=== PATIENT | female | born 1940 | race Asian ===

== ENCOUNTER 2023-04-10 13:08 | Outpatient (AMB) | payer MEDICARE, SELFPAY ==
[2023-04-10 13:38] VITALS: BP 118/70; PULSE 58; O2SAT 99; BMI 21.8
--- NOTE | 2023-04-10 13:38 | MHC.PC.OV ---
Vital Signs 04/10/23 13:38 Height 4 ft 10 in Weight 104 lb 8 oz BMI 21.8 BP 118/70 Blood Pressure Location Lt brachial Position Sitting Pulse 58 Pulse Source Pulse Oximeter Pulse Oximetry (%) 99 Oxygen Delivery Method Room Air Intake Visit Reasons: Establish Care OK per ID Medication List - Last Reconciled 04/10/23 by Paola Murillo MD amlodipine 5 mg PO DAILY atenolol 25 mg PO DAILY levothyroxine 25 mcg PO DAILY Tobacco use date assessed: 04/10/23 Fall risk assessment: No Falls in past year Last assessed Fall Risk: 04/10/23 Dental Screening Dental Screen Date: 04/10/23 Did you have a dental visit in the last 12 months?: No Did you have a dental problem in the last 6 months where you did not have access to dental care?: No Was dental information given to patient?: Patient has dentist HPI Establish Care OK per ID HPI Details Patient is 82-year-old female came in today for establish care visit Patient have a history of hypertension blood pressure is well controlled she is taking amlodipine 5 mg and atenolol 25 mg She takes levothyroxine 25 mcg for hypothyroidism Patient declines to do the mammogram She says she is all done with the colonoscopy as well She offer no new complaints today Lab order placed to be done fasting medication filled Patient will be seen every 6 month lab to be done before visit. [facility] Social History Housing: House Patient Tobacco Use Status: Never used Tobacco e-Cigarette/Vaping Use: Never Used service: No Current occupational status: retired Cognitive needs: No Hearing needs: No Vision needs: Yes Questionnaire PHQ-9 Over the last 2 weeks, how often have you been bothered by any of the following problems? 1. Little interest or pleasure in doing things: not at all 2. Feeling down, depressed, or hopeless: not at all 3. Trouble falling or staying asleep, or sleeping too much: not at all 4. Feeling tired or having little energy: not at all 5. Poor appetite or overeating: not at all 6. Feeling bad about yourself - or that you are a failure or have let yourself or your family down: not at all 7. Trouble concentrating on things, such as reading the newspaper or watching television: not at all 8. Moving or speaking so slowly that other people could have noticed. Or the opposite - being so fidgety or restless that you have been moving around a lot more than usual: not at all 9. Thoughts that you would be better off or of hurting yourself in some way: not at all Total score: 0 Depression Screening Interpretation: Negative Depression Screening Done: Yes 71791 - PHQ-9 Billing: Yes Source: Developed by Drs. Elan Scott, Maura Grey, Oscar Montoya and colleagues, with an educational verna from [employer]. Thrive Questionnaire Date Thrive assessed: 04/10/23 I am a: Patient What is your living situation today?: I have a steady place to live Within the past 12 months, did the food you bought not last and you didn't have the money to get more?: Never true Within the past 12 months, did you worry whether your food would run out before you got money to buy more?: Never true Do you have trouble paying for medicines?: No Do you have trouble getting transportation to medical appointments?: No Do you have trouble paying your heating and electricity bill?: No Do you have trouble taking care of your child, family member or friend?: No Do you have trouble with day-to-day activities such as bathing, preparing meals, shopping, managing finances, etc.?: No Are you currently unemployed and looking for a job?: No Are you interested in more education?: No Please select the resources that you would like help with: None Currently or been in a relationship where the following occur: no concerns reported SINGH-7 AMB Questionnaire SINGH-7 Date SINGH - 7 assessed: 04/10/23 Feeling nervous, anxious, or on edge: 0 = Not at all Not being able to stop or control worryin = Not at all Worrying too much about different things: 0 = Not at all Trouble relaxin = Not at all Being so restless that it is hard to sit still: 0 = Not at all Becoming easily annoyed or irritable: 0 = Not at all Feeling afraid as if something awful might happen: 0 = Not at all Total SINGH-7 score (0-4 normal; 5-9 mild; 10-14 moderate; 15-21 severe): 0 Source: Developed by Drs. Elan Scott, Maura Grey, Oscar Montoya and colleagues, with an educational verna from [employer]. SINGH-7 Assessment Billing SINGH-7 Assessment Tool: SINGH-7 Assessment 17655 Review of Systems Const Denies chills, Denies fever(s) and Denies headache(s) Eyes Denies blurry vision ENT Denies headache(s), Denies nasal discharge, Denies nasal obstruction, Denies odynophagia and Denies sinus pain Card Denies chest pain at rest and Denies chest pain with activity Resp Denies cough and Denies hemoptysis GI Denies diarrhea, Denies odynophagia, Denies vomiting and Denies hematemesis Reports as per HPI Musc Denies abnormal gait Skin/Breast Reports as per HPI Neuro Denies Neuro-related abnormal movements, Denies Abnormal speech present, Denies abnormal gait, Denies headache(s) and Denies Sensory deficit (Neuro) Psych Denies mood swings and Denies paranoia Endo Reports as per HPI Dick/Lymph Reports as per HPI Aller/Immun Reports as per HPI Physical exam (Primary Care) Vital Signs: Last Vital Signs Pulse 58 04/10/23 13:38 BP 118/70 04/10/23 13:38 Pulse Ox 99 04/10/23 13:38 Oxygen Delivery Method Room Air 04/10/23 13:38 BMI result Body Mass Index 21.8 Tobacco/Smoking Status: Tobacco use Status Tobacco use date assessed 04/10/23 04/10/23 13:41 Patient Tobacco Use Status Never used Tobacco 04/10/23 13:41 e-Cigarette/Vaping Use Never Used 04/10/23 13:41 PHQ-9: PHQ-9 Score PHQ-9: Total score 0 04/10/23 14:04 Depression Screening Interpretation: Negative Thrive Assessment: Date of Thrive Assessment Date Thrive assessed 04/10/23 04/10/23 14:04 Currently or been in a relationship where the following occur: no concerns reported Const General: cooperative, comfortable and no acute distress Orientation/consciousness: patient oriented x3 HENMT Head: Yes normocephalic and Yes atraumatic Eyes General: appearance normal, both eyes and all related structures Pupils: Equal, round and reactive pupils present EOM: EOMs intact bilaterally Neck Neck: Yes supple and No lymphadenopathy Thyroid: Thyroid normal Lymphatic: no lymphadenopathy noted Chest Breast/axilla palpation: normal palpation of the breasts Resp Effort & Inspection: normal respiratory effort and able to speak in complete sentences Auscultation: clear to auscultation bilaterally Cardio Heart sounds: S1 normal heart sound present and S2 normal heart sound present GI Palpation (GI): Soft to palpation and nontender Auscultation: normal bowel sounds General: Yes no CVA tenderness Back/Spine/Pelvis Back: no CVA tenderness Skin General skin exam: elasticity normal and turgor normal Neuro General: patient oriented x3 and gait normal Cranial nerves: Yes Equal, round and reactive pupils present Speech: No Abnormal speech present Sensory Exam: No Sensory deficit (Neuro) Coordination: tandem gait normal and Romberg test negative Extrem General: Yes normal exam except as noted and No edema Assessment and Plan Assessment & Plan (1) Establishing care with new doctor, encounter for: Code(s): Z76.89 - Persons encountering health services in other specified circumstances (2) Hypertension, essential: Code(s): I10 - Essential (primary) hypertension (3) Other specified hypothyroidism: Code(s): E03.8 - Other specified hypothyroidism Plan Patient is 82-year-old female came in today for establish care visit Patient have a history of hypertension blood pressure is well controlled she is taking amlodipine 5 mg and atenolol 25 mg She takes levothyroxine 25 mcg for hypothyroidism Patient declines to do the mammogram She says she is all done with the colonoscopy as well She offer no new complaints today Lab order placed to be done fasting medication filled Patient will be seen every 6 month lab to be done before visit. Orders: Orders Complete Blood Count Auto Diff Today E03.8 - Other specified hypothyroidism, I10 - Essential (primary) hypertension, Z76.89 - Persons encountering health services in other specified circumstances Comprehensive [place]. Panel Fast Today E03.8 - Other specified hypothyroidism, I10 - Essential (primary) hypertension, Z76.89 - Persons encountering health services in other specified circumstances TSH reflex Free T4 Today E03.8 - Other specified hypothyroidism, I10 - Essential (primary) hypertension, Z76.89 - Persons encountering health services in other specified circumstances Lipid Panel Today E03.8 - Other specified hypothyroidism, I10 - Essential (primary) hypertension, Z76.89 - Persons encountering health services in other specified circumstances Complete Blood Count Auto Diff 6 Months E03.8 - Other specified hypothyroidism, I10 - Essential (primary) hypertension Comprehensive Met. Panel 6 Months E03.8 - Other specified hypothyroidism, I10 - Essential (primary) hypertension TSH reflex Free T4 6 Months E03.8 - Other specified hypothyroidism, I10 - Essential (primary) hypertension Medications: New atenolol 25 mg PO DAILY 90 tabs 1RF levothyroxine 25 mcg PO DAILY 90 tabs 1RF amlodipine 5 mg PO DAILY 90 tabs 1RF Coding Level of Care Code New Pt Level 4 (87952) Diagnoses Establishing care with new doctor, encounter for Z76.89 Hypertension, essential I10 Other specified hypothyroidism E03.8 Additional Codes SINGH-7 Assessment Billing - SINGH-7 Assessment Tool: SINGH-7 Assessment [id number] ([id number])
== END 2023-04-10 14:01 | disposition home or self-care (01) ==
PROVIDERS: PCP Internal Medicine; Visit Provider Internal Medicine
DX: Z76.89 Persons encountering health services in other specified circumstances (principal); I10 Essential (primary) hypertension; E03.8 Other specified hypothyroidism
CPT/HCPCS: 99204

== ENCOUNTER 2023-09-18 11:51 | Outpatient (AMB) | payer MEDICARE, SELFPAY ==
[2023-09-18 11:54] VITALS: BP 148/72; PULSE 61; O2SAT 98; BMI 21.3
--- NOTE | 2023-09-18 11:54 | A.OFFPC_ITS ---
Vital Signs 09/18/23 11:54 Height 4 ft 10 in Weight 102 lb 2 oz BMI 21.3 Intake Visit Reasons: Reg Check Up Medication List - Last Reconciled 09/18/23 by Paola Murillo MD amlodipine 5 mg PO DAILY atenolol 25 mg PO DAILY levothyroxine 25 mcg PO DAILY Tobacco use date assessed: 04/10/23 Dental Screening Dental Screen Date: 04/10/23 [facility] Social History Housing: House Patient Tobacco Use Status: Never used Tobacco e-Cigarette/Vaping Use: Never Used service: No Current occupational status: retired Cognitive needs: No Hearing needs: No Vision needs: Yes Questionnaire Thrive Questionnaire Date Thrive assessed: 04/10/23 SINGH-7 AMB Questionnaire SINGH-7 Date SINGH - 7 assessed: 04/10/23 Source: Developed by Drs. Elan Scott, Maura Grey, Oscar Montoya and colleagues, with an educational verna from [facility]. Physical exam (Primary Care) Tobacco/Smoking Status: Tobacco use Status Tobacco use date assessed 04/10/23 04/10/23 13:41 Patient Tobacco Use Status Never used Tobacco 04/10/23 13:41 e-Cigarette/Vaping Use Never Used 04/10/23 13:41 Thrive Assessment: Date of Thrive Assessment Date Thrive assessed 04/10/23 04/10/23 14:04 Coding
--- NOTE | 2023-09-18 12:00 | AM.OFFVISMDC ---
Intake Vital Signs 09/18/23 11:54 Height 4 ft 10 in Weight 102 lb 2 oz BMI 21.3 BP 148/72 H Blood Pressure Location Rt brachial Position Sitting Pulse 61 Pulse Source Pulse Oximeter Pulse Oximetry (%) 98 Oxygen Delivery Method Room Air Intake Allergies No Known Allergies Allergy (Verified 09/18/23 12:00) Medication List - Last Reconciled 09/18/23 by Paola Murillo MD amlodipine 5 mg PO DAILY atenolol 25 mg PO DAILY levothyroxine 25 mcg PO DAILY Do you need a note to return to daycare/school/sports/work: No PFSH Social History Housing: House Patient Tobacco Use Status: Never used Tobacco e-Cigarette/Vaping Use: Never Used service: No Current occupational status: retired Cognitive needs: No Hearing needs: No Vision needs: Yes Physical Exam Vital Signs: Last Vital Signs Pulse 61 09/18/23 11:54 BP 148/72 H 09/18/23 11:54 Pulse Ox 98 09/18/23 11:54 Oxygen Delivery Method Room Air 09/18/23 11:54 BMI result Body Mass Index 21.3 Quality Reporting (2020) Adult ([facility] ) Body Mass Index: 21.3 Coding
--- NOTE | 2023-09-18 12:06 | A.OFFPC_ITS ---
Vital Signs 09/18/23 11:54 Height 4 ft 10 in Weight 102 lb 2 oz BMI 21.3 BP 148/72 H Blood Pressure Location Rt brachial Position Sitting Pulse 61 Pulse Source Pulse Oximeter Pulse Oximetry (%) 98 Oxygen Delivery Method Room Air Intake Visit Reasons: Reg Check Up Allergies No Known Allergies Allergy (Verified 09/18/23 12:00) Medication List - Last Reconciled 09/18/23 by Paola Murillo MD amlodipine 5 mg PO DAILY atenolol 25 mg PO DAILY levothyroxine 25 mcg PO DAILY Tobacco use date assessed: 04/10/23 Dental Screening Dental Screen Date: 04/10/23 HPI Reg Check Up HPI Details Patient is 82-year-old female came in today for follow-up appointment Her blood pressure is elevated today at 148 systolic Was 118 when she was seen initially last year for establish care Lab order was placed but still not done Patient is fasting today and she will go for labs I would also recommend to start monitoring blood pressure at home And bring blood pressure log along next visit Her son is paramedics can check the blood pressure She is here today with her daughter in law [facility] Social History Housing: House Patient Tobacco Use Status: Never used Tobacco e-Cigarette/Vaping Use: Never Used service: No Current occupational status: retired Cognitive needs: No Hearing needs: No Vision needs: Yes Questionnaire PHQ-9 Over the last 2 weeks, how often have you been bothered by any of the following problems? 1. Little interest or pleasure in doing things: not at all 2. Feeling down, depressed, or hopeless: not at all 3. Trouble falling or staying asleep, or sleeping too much: not at all 4. Feeling tired or having little energy: not at all 5. Poor appetite or overeating: not at all 6. Feeling bad about yourself - or that you are a failure or have let yourself or your family down: not at all 7. Trouble concentrating on things, such as reading the newspaper or watching television: not at all 8. Moving or speaking so slowly that other people could have noticed. Or the opposite - being so fidgety or restless that you have been moving around a lot more than usual: not at all 9. Thoughts that you would be better off or of hurting yourself in some way: not at all Total score: 0 Depression Screening Interpretation: Negative Depression Screening Done: Yes 39083 - PHQ-9 Billing: Yes Source: Developed by Drs. Elan Scott, Oscar Lucero and colleagues, with an educational verna from [employer]. Thrive Questionnaire Date Thrive assessed: 09/18/23 I am a: Patient What is your living situation today?: I have a steady place to live Within the past 12 months, did the food you bought not last and you didn't have the money to get more?: Never true Within the past 12 months, did you worry whether your food would run out before you got money to buy more?: Never true Do you have trouble paying for medicines?: No Do you have trouble getting transportation to medical appointments?: No Do you have trouble paying your heating and electricity bill?: No Do you have trouble taking care of your child, family member or friend?: No Do you have trouble with day-to-day activities such as bathing, preparing meals, shopping, managing finances, etc.?: No Are you currently unemployed and looking for a job?: No Are you interested in more education?: No Please select the resources that you would like help with: None Currently or been in a relationship where the following occur: no concerns reported THRIVE Score: 0 SINGH-7 AMB Questionnaire SINGH-7 Date SINGH - 7 assessed: 09/18/23 Feeling nervous, anxious, or on edge: 0 = Not at all Not being able to stop or control worryin = Not at all Worrying too much about different things: 0 = Not at all Trouble relaxin = Not at all Being so restless that it is hard to sit still: 0 = Not at all Becoming easily annoyed or irritable: 0 = Not at all Feeling afraid as if something awful might happen: 0 = Not at all Total SINGH-7 score (0-4 normal; 5-9 mild; 10-14 moderate; 15-21 severe): 0 Source: Developed by Drs. Elan Scott, Oscar Lucero and colleagues, with an educational verna from [employer]. SINGH-7 Assessment Billing SINGH-7 Assessment Tool: SINGH-7 Assessment [id number] Review of Systems Const Denies chills and Denies fever(s) ENT Denies epistaxis and Denies nasal discharge Card Denies chest pain Resp Denies chest congestion, Denies cough and Denies hemoptysis GI Denies diarrhea and Denies nausea Skin/Breast Denies rash Neuro Reports no additional complaints Psych Reports no additional complaints Endo Reports no additional complaints Physical exam (Primary Care) Vital Signs: Last Vital Signs Pulse 61 09/18/23 11:54 BP 148/72 H 09/18/23 11:54 Pulse Ox 98 09/18/23 11:54 Oxygen Delivery Method Room Air 09/18/23 11:54 BMI result Body Mass Index 21.3 Tobacco/Smoking Status: Tobacco use Status Tobacco use date assessed 04/10/23 09/18/23 12:07 Patient Tobacco Use Status Never used Tobacco 09/18/23 12:07 e-Cigarette/Vaping Use Never Used 09/18/23 12:07 PHQ-9: PHQ-9 Score PHQ-9: Total score 0 09/18/23 12:14 Depression Screening Interpretation: Negative Thrive Assessment: Date of Thrive Assessment Date Thrive assessed 09/18/23 09/18/23 12:07 Currently or been in a relationship where the following occur: no concerns reported Const General: cooperative, comfortable and no acute distress Orientation/consciousness: patient oriented x3 HENMT Head: Yes normocephalic Eyes General: appearance normal, both eyes and all related structures Neck Neck: Yes supple Resp Effort & Inspection: normal respiratory effort, no cough and no stridor Cardio Rhythm: regular rhythm Heart sounds: S1 normal heart sound present and S2 normal heart sound present Skin General skin exam: turgor normal Neuro General: patient oriented x3, tone normal and moves all extremities Extrem Right lower extremity: no edema Left lower extremity: no edema Assessment and Plan Assessment & Plan (1) Hypertension, essential: Code(s): I10 - Essential (primary) hypertension (2) Other specified hypothyroidism: Code(s): E03.8 - Other specified hypothyroidism Plan Patient is 82-year-old female came in today for follow-up appointment Her blood pressure is elevated today at 148 systolic Was 118 when she was seen initially last year for establish care Lab order was placed but still not done Patient is fasting today and she will go for labs I would also recommend to start monitoring blood pressure at home And bring blood pressure log along next visit Her son is paramedics can check the blood pressure She is here today with her daughter in law Orders: Orders Complete Blood Count Auto Diff Today E03.8 - Other specified hypothyroidism, I10 - Essential (primary) hypertension Comprehensive [place]. Panel Fast Today E03.8 - Other specified hypothyroidism, I10 - Essential (primary) hypertension Lipid Panel Today E03.8 - Other specified hypothyroidism, I10 - Essential (primary) hypertension TSH reflex Free T4 Today E03.8 - Other specified hypothyroidism, I10 - Essential (primary) hypertension Vitamin D 25-OH (D2 and D3) Today E03.8 - Other specified hypothyroidism, I10 - Essential (primary) hypertension Coding Level of Care Code Est Pt Level 3 (57350) Complex EM visit Add On G2211 Diagnoses Hypertension, essential I10 Other specified hypothyroidism E03.8 Additional Codes SINGH-7 Assessment Billing - SINGH-7 Assessment Tool: SINGH-7 Assessment [id number] ([id number])
== END 2023-09-18 13:11 | disposition home or self-care (01) ==
PROVIDERS: PCP Internal Medicine; Visit Provider Internal Medicine
DX: I10 Essential (primary) hypertension (principal); E03.8 Other specified hypothyroidism
CPT/HCPCS: 99213; G2211

== ENCOUNTER 2023-09-18 12:25 | Outpatient (REF) | payer MEDICARE, SELFPAY ==
[2023-09-18 13:17] LABS: MANUAL DIFF FLAG NO
[2023-09-18 13:23] LABS: Basophils Percent Auto 0.4 % (0-2); Eosinophils Absolute Auto 0.1 X10*3/uL (0.0-0.4); Eosinophils Percent Auto 1.9 % (0-4); Hematocrit 38.5 % (37.0-47.0); Hemoglobin 12.6 g/dl (12.0-16.0); Imm Gran Abs Auto 0.01 X10*3/uL (0.00-0.03); Imm Gran Pct Auto 0.2 % (0.0-0.4); Lymphocytes Absolute Auto 0.9 X10*3/uL (1.2-4.9); Mean Corpuscular HGB Conc 32.7 g/dl (31.0-35.0); Mean Corpuscular Hemoglobin 31.7 pg (27.0-33.0); Mean Corpuscular Volume 96.7 fL (80.0-98.0); Mean Platelet Volume 10.2 fL (9.4-12.3); Monocytes Absolute Auto 0.4 X10*3/uL (0.1-1.2); Neutrophils Absolute Auto 3.7 x10*3/uL (2.0-8.3); Neutrophils Percent Auto 72.5 % (45-73); Platelet Count 190 X10*3/uL (160-400); Red Blood Count 3.98 X10*6/uL (4.20-5.50); Red Cell Distribution Width 13.1 % (11.0-16.0); White Blood Count 5.2 X10*3/uL (4.8-10.8)
[2023-09-18 14:01] LABS: Alanine Aminotransferase 27 U/L (0-31); Albumin Level 4.3 g/dL (3.5-5.0); Alkaline Phosphatase 77 U/L (39-117); Anion Gap 15 (12-20); Aspartate Amino Transferase 32 U/L (5-31); Bilirubin Total 0.6 mg/dL (0.0-1.0); Blood Urea Nitrogen 13 mg/dL (9-16); Calcium 9.4 mg/dL (8.4-10.2); Carbon Dioxide 27 mmol/L (22-29); Chloride 106 mmol/L (96-108); Cholesterol 217 mg/dL (<200); Estimated Glomerular Filt Rate > 60; Glucose Fasting 91 mg/dL (60-99); HDL Cholesterol 75 mg/dL (>40); LDL Cholesterol Calculated 131 mg/dL (<100); Potassium 4.6 mmol/L (3.3-5.1); Sodium 143 mmol/L (135-145); Total Protein 7.4 g/dL (6.5-8.0); Triglycerides 59 mg/dL (<150)
[2023-09-18 14:18] LABS: TSH reflex Free T4 2.56 uIU/mL (0.32-4.0)
[2023-09-22 16:09] LABS: Vitamin D 25-OH, D2 <4 ng/mL; Vitamin D 25-OH, D3 43 ng/mL; Vitamin D 25-OH, Total 43 ng/mL (30-100)
== END 2023-09-18 12:26 | disposition home or self-care (01) ==
LOC: HO.HMGCLDS 12:25
PROVIDERS: PCP Internal Medicine; Visit Provider Internal Medicine
DX: I10 Essential (primary) hypertension (principal); E03.8 Other specified hypothyroidism
CPT/HCPCS: 36415; 80053; 80061; 82306; 84443; 85025

== ENCOUNTER 2023-10-01 12:57 | Outpatient (AMB) | payer MEDICARE, SELFPAY ==
--- NOTE | 2023-10-01 12:57 | MHC.PC.OV ---
Intake Visit Reasons: SWV G089 Allergies No Known Allergies Allergy (Verified 09/18/23 12:00) Tobacco use date assessed: 04/10/23 Dental Screening Dental Screen Date: 04/10/23 [facility] Social History Housing: House Patient Tobacco Use Status: Never used Tobacco e-Cigarette/Vaping Use: Never Used service: No Current occupational status: retired Cognitive needs: No Hearing needs: No Vision needs: Yes Questionnaire Thrive Questionnaire Date Thrive assessed: 09/18/23 SINGH-7 AMB Questionnaire SINGH-7 Date SINGH - 7 assessed: 09/18/23 Source: Developed by Drs. Elan Scott, Maura Grey, Oscar Montoya and colleagues, with an educational verna from [employer]. Physical exam (Primary Care) Tobacco/Smoking Status: Tobacco use Status Tobacco use date assessed 04/10/23 09/18/23 12:07 Patient Tobacco Use Status Never used Tobacco 09/18/23 12:07 e-Cigarette/Vaping Use Never Used 09/18/23 12:07 Thrive Assessment: Date of Thrive Assessment Date Thrive assessed 09/18/23 09/18/23 12:07 Coding
[2023-10-01 12:58] VITALS: BP 136/74; PULSE 65; O2SAT 97; BMI 21.5
--- NOTE | 2023-10-01 12:58 | A.OFFVIS_ITS ---
Intake Vital Signs 10/01/23 12:58 Height 4 ft 10 in Weight 103 lb BMI 21.5 BP 136/74 Blood Pressure Location Lt brachial Position Sitting Pulse 65 Pulse Source Pulse Oximeter Pulse Oximetry (%) 97 Oxygen Delivery Method Room Air Intake Visit Reasons: SWV G089 Allergies No Known Allergies Allergy (Verified 10/01/23 13:03) Medication List - Last Reconciled 10/01/23 by Paola Murillo MD amlodipine 5 mg PO DAILY atenolol 25 mg PO DAILY levothyroxine 25 mcg PO DAILY HPI SWV G089 HPI Details Patient is 82-year-old came in today for regular follow-up and Medicare wellness visit Blood pressure is stable, patient is taking amlodipine 5 mg and atenolol 25 mg Labs done recently reviewed with the patient TSH is within normal limit, continue levothyroxine 25 mcg Patient offers no complaints today She will return in 6 months follow-up appointment, labs to be done before visit. [facility] Social History Housing: House Patient Tobacco Use Status: Never used Tobacco e-Cigarette/Vaping Use: Never Used service: No Current occupational status: retired Cognitive needs: No Hearing needs: No Vision needs: Yes Questionnaire Medicare Wellness Checkup What is your age?: 82 or older What gender do you identify with?: female During the past 4 weeks, how much have you been bothered by emotional problems such as feeling anxious, depressed, irritable, sad or downhearted, and blue?: not at all During the past 4 weeks, has your physical & emotional health limited your social activities with family, friends, neighbors, or groups?: not at all During the past 4 weeks, how much bodily pain have you generally had?: no pain During the past 4 weeks, was someone available to help you if you needed & wanted help?: yes, as much as I wanted During the past 4 weeks, what was the hardest physical activity you could do for at least 2 minutes?: moderate Can you get to places out of walking distance without help? (For eg., can you travel alone on buses, taxis or drive your car?): Yes Can you go shopping for groceries or clothes without someone's help?: Yes Can you prepare your own meals?: Yes Can you do your housework without help?: Yes Because of any health problems, do you need the help of another person with your personal care needs such as eating, bathing, dressing or getting around the house?: No Can you handle your own money without help?: Yes During the past 4 weeks, how would you rate your health in general?: excellent During the past 4 weeks how have things been going for you?: very well; could hardly better Are you having difficulties driving your car?: sometimes Do you always fasten your seat belt when you are in a car?: yes, usually During past 4 weeks, have you been bothered by the following: never: Falling or dizzy when standing up, Sexual problems?, Trouble eating well?, Teeth or denture problems?, Problems using the telephone? and Tiredness or fatigue? Have you fallen 2 or more times in the past year?: No Are you afraid of falling?: No Are you a smoker?: no During the past 4 weeks, how many drinks of wine, beer, or other alcoholic beverages did you have?: 1 drink or less per week Do you exercise for about 20 minutes 3 or more times a week?: yes, most of the time Have you been given information to help with the following?: yes: Keeping track of your medications? and no: Hazards in your house that might hurt you? How often do you have trouble taking medicines the way you have been told to take them?: I always take medicine as prescribed How confident are you that you can control & manage most of your health problems?: very confident What is your race?: Mini Mental State Exam (MMSE) Orientation What is the (year) (season) (date) (day) (month)?: year, season, date, day and month Where are we (state) (county) (town or city) (hospital) (floor)?: state, county, town or city, hospital/clinic and floor Score Score: 10 Activity of Daily Living Bathing - sponge bath, tub bath or shower: receives no assistance (gets in/out by self, if usual bathing means Dressing - getting clothes from closets & drawers, including inner/outer garments & fasteners.: gets clothes & gets completely dressed without help Toileting - going to the 'toilet room' for urine/bowel elimination & cleaning self/arranging clothes: goes to toilet room, cleans self, arranges clothes without help Transfer: moves in & out of bed and chair without help (may use support object) Continence: controls urination/bowel movements completely by self Feeding: feeds self without help Total Score: 0 Information obtained from: patient Using telephone: independent Traveling: independent Shopping: independent Preparing meals: independent Housework: independent Taking medicine: independent Managing money: independent PHQ-9 Over the last 2 weeks, how often have you been bothered by any of the following problems? 1. Little interest or pleasure in doing things: not at all 2. Feeling down, depressed, or hopeless: not at all 3. Trouble falling or staying asleep, or sleeping too much: not at all 4. Feeling tired or having little energy: not at all 5. Poor appetite or overeating: not at all 6. Feeling bad about yourself - or that you are a failure or have let yourself or your family down: not at all 7. Trouble concentrating on things, such as reading the newspaper or watching television: not at all 8. Moving or speaking so slowly that other people could have noticed. Or the opposite - being so fidgety or restless that you have been moving around a lot more than usual: not at all 9. Thoughts that you would be better off or of hurting yourself in some way: not at all Total score: 0 Depression Screening Interpretation: Negative Depression Screening Done: Yes 24889 - PHQ-9 Billing: Yes Source: Developed by Drs. Elan Scott, Maura Grey, Oscar Montoya and colleagues, with an educational verna from [employer]. Review of Systems Const Denies chills and Denies fever(s) ENT Denies epistaxis and Denies nasal discharge Card Denies chest pain Resp Denies chest congestion, Denies cough and Denies hemoptysis GI Denies diarrhea and Denies nausea Skin/Breast Denies rash Neuro Reports no additional complaints Psych Reports no additional complaints Endo Reports no additional complaints Physical Exam Vital Signs: Last Vital Signs Pulse 65 10/01/23 12:58 BP 136/74 10/01/23 12:58 Pulse Ox 97 10/01/23 12:58 Oxygen Delivery Method Room Air 10/01/23 12:58 BMI result Body Mass Index 21.5 Const General: cooperative, comfortable and no acute distress Orientation/consciousness: patient oriented x3 HEENT Head: Yes normocephalic Eyes General: appearance normal, both eyes and all related structures Neck Other: Supple Neck: Yes supple Resp Effort & Inspection: normal respiratory effort, no cough and no stridor Cardio Rhythm: regular rhythm Heart sounds: S1 normal heart sound present and S2 normal heart sound present Skin General skin exam: turgor normal Neuro Other: Motor sensory intact General: patient oriented x3, tone normal and moves all extremities Extrem Other: No lower extremity swelling. Right lower extremity: no edema Left lower extremity: no edema Psych Other: Normal effect, speech clear Assessment & Plan Assessment & Plan (1) Medicare annual wellness visit, subsequent: Code(s): Z00.00 - Encounter for general adult medical examination without abnormal findings (2) Hypertension, essential: Code(s): I10 - Essential (primary) hypertension (3) Other specified hypothyroidism: Code(s): E03.8 - Other specified hypothyroidism Plan Patient is 82-year-old came in today for regular follow-up and Medicare wellness visit Blood pressure is stable, patient is taking amlodipine 5 mg and atenolol 25 mg Labs done recently reviewed with the patient TSH is within normal limit, continue levothyroxine 25 mcg Patient offers no complaints today She will return in 6 months follow-up appointment, labs to be done before visit. Orders: Orders Vitamin D 25-OH (D2 and D3) 6 Months E03.8 - Other specified hypothyroidism, I10 - Essential (primary) hypertension Vitamin B12 6 Months E03.8 - Other specified hypothyroidism, I10 - Essential (primary) hypertension TSH reflex Free T4 6 Months E03.8 - Other specified hypothyroidism, I10 - Essential (primary) hypertension Complete Blood Count Auto Diff 6 Months E03.8 - Other specified hypothyroidism, I10 - Essential (primary) hypertension Comprehensive Remus. Panel Fast 6 Months E03.8 - Other specified hypothyroidism, I10 - Essential (primary) hypertension Lipid Panel 6 Months E03.8 - Other specified hypothyroidism, I10 - Essential (primary) hypertension Quality Reporting (2019) Depression/Bipolar (159/160/161/177) PHQ-9: Total score: 0 Coding Level of Care Code Medicare Subsequent (G0439) Est Pt Level 3 (11683) Diagnoses Medicare annual wellness visit, subsequent Z00.00 Hypertension, essential I10 Other specified hypothyroidism E03.8 CPT Codes Advance Care Planning - Time spent: 1-15 minutes, not on file ([id number]) Advance Care Planning Advance Care Planning discussion: Completed/Scanned Forms completed: Health Care Proxy and MOLST Time spent: 1-15 minutes, not on file
== END 2023-10-01 13:33 | disposition home or self-care (01) ==
PROVIDERS: PCP Internal Medicine; Visit Provider Internal Medicine
DX: Z00.00 Encounter for general adult medical examination without abnormal findings (principal); I10 Essential (primary) hypertension; E03.8 Other specified hypothyroidism
CPT/HCPCS: 1124F; 99213; G0439

== ENCOUNTER 2024-03-20 11:56 | Outpatient (AMB) | payer MEDICARE, SELFPAY ==
--- NOTE | 2024-03-20 11:59 | MHC.PC.OV ---
Vital Signs 03/20/24 12:00 Height 4 ft 10 in Weight 105 lb BMI 21.9 BP 132/76 Blood Pressure Location Rt brachial Position Sitting Pulse 65 Pulse Source Pulse Oximeter Pulse Oximetry (%) 96 Oxygen Delivery Method Room Air Intake Visit Reasons: Sat f/ Allergies No Known Allergies Allergy (Verified 03/20/24 12:02) Medication List - Last Reconciled 03/20/24 by Paola Murillo MD amlodipine 5 mg PO DAILY atenolol 25 mg PO DAILY levothyroxine 25 mcg PO DAILY Tobacco use date assessed: 03/20/24 Fall risk assessment: No Falls in past year Last assessed Fall Risk: 03/20/24 Dental Screening Dental Screen Date: 03/20/24 Did you have a dental visit in the last 12 months?: Yes Did you have a dental problem in the last 6 months where you did not have access to dental care?: No Was dental information given to patient?: Patient has dentist HPI Sat f/ HPI Details Patient is 83-year-old came in today for regular follow-up Patient is doing well and offer no complaints She was supposed to have labs done before this visit but I see they are not done Reminded patient to do it fasting Blood pressure is stable, patient is taking amlodipine 5 mg and atenolol 25 mg She will return in 6 months follow-up appointment [facility] Social History Housing: House Patient Tobacco Use Status: Never used Tobacco e-Cigarette/Vaping Use: Never Used service: No Current occupational status: retired Cognitive needs: No Hearing needs: No Vision needs: Yes Questionnaire PHQ-9 Over the last 2 weeks, how often have you been bothered by any of the following problems? 1. Little interest or pleasure in doing things: not at all 2. Feeling down, depressed, or hopeless: not at all 3. Trouble falling or staying asleep, or sleeping too much: not at all 4. Feeling tired or having little energy: not at all 5. Poor appetite or overeating: not at all 6. Feeling bad about yourself - or that you are a failure or have let yourself or your family down: not at all 7. Trouble concentrating on things, such as reading the newspaper or watching television: not at all 8. Moving or speaking so slowly that other people could have noticed. Or the opposite - being so fidgety or restless that you have been moving around a lot more than usual: not at all 9. Thoughts that you would be better off or of hurting yourself in some way: not at all Total score: 0 Depression Screening Interpretation: Negative Depression Screening Done: Yes 94870 - PHQ-9 Billing: Yes Source: Developed by Drs. Elan Scott, Maura Grey, Oscar Montoya and colleagues, with an educational verna from [employer]. Thrive Questionnaire Date Thrive assessed: 03/13/24 I am a: Patient What is your living situation today?: I have a steady place to live Within the past 12 months, did the food you bought not last and you didn't have the money to get more?: Never true Within the past 12 months, did you worry whether your food would run out before you got money to buy more?: Never true Do you have trouble paying for medicines?: No Do you have trouble getting transportation to medical appointments?: No Do you have trouble paying your heating and electricity bill?: No Do you have trouble taking care of your child, family member or friend?: No Do you have trouble with day-to-day activities such as bathing, preparing meals, shopping, managing finances, etc.?: No Are you currently unemployed and looking for a job?: No Are you interested in more education?: No Please select the resources that you would like help with: None Currently or been in a relationship where the following occur: No concerns reported THRIVE Score: 0 AUDIT C Alcohol Use Questionnaire (AUDIT-C) 1. How often do you have a drink containing alcohol?: Monthly or less 2. How many drinks containing alcohol do you have on a typical day when you are drinking?: 1 or 2 3. How often do you have six or more drinks on one occasion?: Never Total Score: 1 Score Reviewed/Action Taken: Yes SINGH-7 AMB Questionnaire SINGH-7 Date SINGH - 7 assessed: 03/20/24 Feeling nervous, anxious, or on edge: 0 = Not at all Not being able to stop or control worryin = Not at all Worrying too much about different things: 0 = Not at all Trouble relaxin = Not at all Being so restless that it is hard to sit still: 0 = Not at all Becoming easily annoyed or irritable: 0 = Not at all Feeling afraid as if something awful might happen: 0 = Not at all Total SINGH-7 score (0-4 normal; 5-9 mild; 10-14 moderate; 15-21 severe): 0 Source: Developed by Drs. Elan Scott, Maura Grey, Oscar Montoya and colleagues, with an educational verna from [employer]. SINGH-7 Assessment Billing SINGH-7 Assessment Tool: SINGH-7 Assessment 73401 Review of Systems Const Denies chills and Denies fever(s) ENT Denies epistaxis and Denies nasal discharge Card Denies chest pain Resp Denies chest congestion, Denies cough and Denies hemoptysis GI Denies diarrhea and Denies nausea Skin/Breast Denies rash Neuro Reports no additional complaints Psych Reports no additional complaints Endo Reports no additional complaints Physical exam (Primary Care) Vital Signs: Last Vital Signs Pulse 65 03/20/24 12:00 BP 132/76 03/20/24 12:00 Pulse Ox 96 03/20/24 12:00 Oxygen Delivery Method Room Air 03/20/24 12:00 BMI result Body Mass Index 21.9 Tobacco/Smoking Status: Tobacco use Status Tobacco use date assessed 03/20/24 03/20/24 12:04 Patient Tobacco Use Status Never used Tobacco 03/20/24 12:04 e-Cigarette/Vaping Use Never Used 03/20/24 12:04 PHQ-9: PHQ-9 Score PHQ-9: Total score 0 03/20/24 12:04 Depression Screening Interpretation: Negative Thrive Assessment: Date of Thrive Assessment Date Thrive assessed 03/13/24 03/20/24 12:04 Currently or been in a relationship where the following occur: No concerns reported Const General: cooperative, comfortable and no acute distress Orientation/consciousness: patient oriented x3 HENMT Head: Yes normocephalic Eyes General: appearance normal, both eyes and all related structures Neck Neck: Yes supple Resp Effort & Inspection: normal respiratory effort, no cough and no stridor Cardio Rhythm: regular rhythm Heart sounds: S1 normal heart sound present and S2 normal heart sound present Skin General skin exam: turgor normal Neuro General: patient oriented x3, tone normal and moves all extremities Extrem Right lower extremity: no edema Left lower extremity: no edema Coding Level of Care Code Est Pt Level 3 (44774) Complex EM visit Add On G2211 Diagnoses Hypertension, essential I10 Other specified hypothyroidism E03.8 Additional Codes SINGH-7 Assessment Billing - SINGH-7 Assessment Tool: SINGH-7 Assessment 07123 ([id number]) PHQ-9 - 17195 - PHQ-9 Billing: Yes ([id number]) Assessment & Plan Assessment & Plan (1) Hypertension, essential: Code(s): I10 - Essential (primary) hypertension Category: Medical (2) Other specified hypothyroidism: Code(s): E03.8 - Other specified hypothyroidism Category: Medical Plan Patient is 83-year-old came in today for regular follow-up Patient is doing well and offer no complaints She was supposed to have labs done before this visit but I see they are not done Reminded patient to do it fasting Blood pressure is stable, patient is taking amlodipine 5 mg and atenolol 25 mg She will return in 6 months follow-up appointment
[2024-03-20 12:00] VITALS: BP 132/76; PULSE 65; O2SAT 96; BMI 21.9
== END 2024-03-20 13:47 | disposition home or self-care (01) ==
PROVIDERS: PCP Internal Medicine; Visit Provider Internal Medicine
DX: I10 Essential (primary) hypertension (principal); E03.8 Other specified hypothyroidism

== ENCOUNTER → 2024-03-20 11:56 | Outpatient (BNVA) | payer MEDICARE, SELFPAY | PROVIDERS: PCP Internal Medicine; Visit Provider Internal Medicine | DX: I10 Essential (primary) hypertension (principal); E03.8 Other specified hypothyroidism | CPT/HCPCS: 96127; 99212 ==

== ENCOUNTER 2024-10-16 11:17 | Outpatient (REF) | payer MEDICARE, SELFPAY ==
[2024-10-16 13:50] LABS: MANUAL DIFF FLAG NO
[2024-10-16 13:56] LABS: Basophils Percent Auto 0.5 % (0-2); Eosinophils Absolute Auto 0.1 X10*3/uL (0.0-0.4); Eosinophils Percent Auto 2.2 % (0-4); Hematocrit 37.1 % (37.0-47.0); Hemoglobin 12.2 g/dl (12.0-16.0); Lymphocytes Absolute Auto 0.9 X10*3/uL (1.2-4.9); Lymphocytes Percent Auto 22.4 % (20-40); Mean Corpuscular HGB Conc 32.9 g/dl (31.0-35.0); Mean Corpuscular Hemoglobin 31.7 pg (27.0-33.0); Mean Corpuscular Volume 96.4 fL (80.0-98.0); Mean Platelet Volume 9.6 fL (9.4-12.3); Monocytes Absolute Auto 0.3 X10*3/uL (0.1-1.2); Monocytes Percent Auto 8.2 % (2-11); Neutrophils Absolute Auto 2.7 x10*3/uL (2.0-8.3); Neutrophils Percent Auto 66.7 % (45-73); Platelet Count 179 X10*3/uL (160-400); Red Blood Count 3.85 X10*6/uL (4.20-5.50); Red Cell Distribution Width 12.9 % (11.0-16.0)
[2024-10-16 14:37] LABS: Alanine Aminotransferase 27 U/L (0-31); Albumin Level 4.2 g/dL (3.5-5.0); Alkaline Phosphatase 67 U/L (39-117); Anion Gap 9 (12-20); Aspartate Amino Transferase 32 U/L (5-31); Bilirubin Total 0.7 mg/dL (0.0-1.0); Blood Urea Nitrogen 10 mg/dL (9-16); Carbon Dioxide 28 mmol/L (22-29); Chloride 107 mmol/L (96-108); Cholesterol 184 mg/dL (<200); Estimated Glomerular Filt Rate > 60; Glucose Fasting 93 mg/dL (60-99); HDL Cholesterol 60 mg/dL (>40); LDL Cholesterol Calculated 104 mg/dL (<100); Potassium 4.4 mmol/L (3.3-5.1); Sodium 140 mmol/L (135-145); TSH reflex Free T4 3.86 uIU/mL (0.32-4.0); Total Protein 7.1 g/dL (6.5-8.0); Triglycerides 100 mg/dL (<150)
[2024-10-16 14:38] LABS: Vitamin B12 723 pg/mL (200-900)
[2024-10-22 05:43] LABS: Vitamin D 25-OH, D2 <4 ng/mL; Vitamin D 25-OH, D3 44 ng/mL; Vitamin D 25-OH, Total 44 ng/mL (30-100)
== END 2024-10-16 11:18 | disposition home or self-care (01) ==
LOC: HO.HMGCLDS 11:17
PROVIDERS: PCP Internal Medicine; Visit Provider Internal Medicine
DX: Z00.00 Encounter for general adult medical examination without abnormal findings (principal); I10 Essential (primary) hypertension; E03.8 Other specified hypothyroidism
CPT/HCPCS: 36415; 80053; 80061; 82306; 82607; 84443; 85025; 96127

== ENCOUNTER 2024-10-16 11:31 | Outpatient (AMB) | payer MEDICARE, SELFPAY ==
[2024-10-16 11:36] VITALS: BP 150/70; PULSE 68; RESP 16; TEMP 36.4; O2SAT 97; BMI 20.3
--- NOTE | 2024-10-16 11:36 | A.OFFVIS_ITS ---
Intake Vital Signs 10/16/24 11:36 Height 4 ft 10 in Weight 97 lb BMI 20.3 BP 150/70 H Blood Pressure Location Rt brachial Position Sitting Respiration 16 Pulse 68 Pulse Source Pulse Oximeter Temp 97.5 F Temp Source Oral Pulse Oximetry (%) 97 Oxygen Delivery Method Room Air Intake Visit Reasons: V [id number] Allergies No Known Allergies Allergy (Verified 03/20/24 12:02) Medication List - Last Reconciled 10/16/24 by Paola Murillo MD amlodipine 5 mg PO DAILY atenolol 25 mg PO DAILY levothyroxine 25 mcg PO DAILY HPI V [id number] HPI Details History - The patient is an 83-year-old female p resenting for a Medicare wellness visit. And to have a follow-up on hypertension and hypothyroidism - The patient denies any history of fall s in the past year and reports good memory function, including the ability to recall dates and current events. - She does not drive but is able to perf orm daily activities such as cooking, cleaning, and grocery shopping independently. - The patient has not undergone mammogra ms or colonoscopies recently and expresses disinterest in at-home colon cancer screening tests like Cologuard. - She reports good hearing and denies ur inary incontinence, nausea, vomiting, chest pain, or dyspnea. - The patient is on medications includin g amlodipine 5 mg, atenolol 25 mg, and levothyroxine 25 mg, but did not take her blood pressure medication on the day of the visit, resulting in elevated blood pressure readings. Problem List - Essential Hypertension - Preventative care: Medicare wellness v isit - Preventative care: Colon cancer screen ing with stool test (Cologuard) Patient Instructions - Continue taking prescribed medications , including blood pressure medication, with a small amount of water even on the day of blood tests. - Schedule a follow-up appointment in fo ur months to reassess blood pressure and review lab results. - Bring completed healthcare proxy form to the next visit. And MOLST form Review of Systems - General: No fever no chills - Neurological: No headaches no dizziness - Ear nose throat: No sore throat no hearing difficulty no ear pain - Cardiovascular: No syncope, no chest pain, no palpitations - Gastrointestinal: No nausea vomiting or diarrhea - Endocrine: No polyuria polydipsia no heat intolerance - Genitourinary: No dysuria , no blood in urine Physical Exam General: No acute distress HEENT: No acute findings Neck: Supple Respiratory system: Able to talk in full sentences, no audible wheeze Cardiovascular: S1-S2 regular in rate and rhythm, Gastrointestinal: No pain, no nausea, vomiting Extremities: No new findings 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 Vital signs reviewed Alcohol tobacco drug use reviewed and discussed . MMSE completed . ? Fall risk: ?Assessed Fall history: ?None Have you had any falls with injury in the past year?? No Have you had 2 or more falls in the past year?? No Fall risk assessment completed Home safety discussed with the patient Functional ability assessed and discussed and documented Activities of daily living reviewed and appropriate actions taken . HRA filled out by the patient and reviewed by provider and scanned . Appropriate written screening schedule established . Any health advise needed provided . Advance care planning discussed with the patient , necessary paperwork filled Examination IPPE/AWE: Balance intact Romberg intact Tandem walk intact walk-in turn intact rise from sit to stand intact . ?Hearing ?whisper test pass . Medication list reviewed, patient is stable on medications All other providers patient is seeing discussed and noted . [facility] Social History Housing: House Patient Tobacco Use Status: Never used Tobacco e-Cigarette/Vaping Use: Never Used service: No Current occupational status: retired Cognitive needs: No Hearing needs: No Vision needs: Yes Questionnaire Medicare Wellness Checkup What is your age?: 82 or older What gender do you identify with?: female During the past 4 weeks, how much have you been bothered by emotional problems such as feeling anxious, depressed, irritable, sad or downhearted, and blue?: not at all During the past 4 weeks, has your physical & emotional health limited your social activities with family, friends, neighbors, or groups?: not at all During the past 4 weeks, how much bodily pain have you generally had?: no pain During the past 4 weeks, was someone available to help you if you needed & wanted help?: no, not at all During the past 4 weeks, what was the hardest physical activity you could do for at least 2 minutes?: moderate Can you get to places out of walking distance without help? (For eg., can you travel alone on buses, taxis or drive your car?): Yes Can you go shopping for groceries or clothes without someone's help?: Yes Can you prepare your own meals?: Yes Can you do your housework without help?: Yes Because of any health problems, do you need the help of another person with your personal care needs such as eating, bathing, dressing or getting around the house?: No Can you handle your own money without help?: Yes During the past 4 weeks, how would you rate your health in general?: very good During the past 4 weeks how have things been going for you?: very well; could hardly better Are you having difficulties driving your car?: not applicable, I don't use a car During past 4 weeks, have you been bothered by the following: never: Falling or dizzy when standing up, Sexual problems?, Trouble eating well?, Teeth or denture problems?, Problems using the telephone? and Tiredness or fatigue? Have you fallen 2 or more times in the past year?: No Are you afraid of falling?: No Are you a smoker?: no During the past 4 weeks, how many drinks of wine, beer, or other alcoholic beverages did you have?: no alcohol at all Do you exercise for about 20 minutes 3 or more times a week?: yes, most of the time Have you been given information to help with the following?: no: Hazards in your house that might hurt you? and no: Keeping track of your medications? How often do you have trouble taking medicines the way you have been told to take them?: I always take medicine as prescribed How confident are you that you can control & manage most of your health problems?: I do not have any health problems What is your race?: Mini Mental State Exam (MMSE) Orientation What is the (year) (season) (date) (day) (month)?: year, season, date, day and month Where are we (state) (county) (town or city) (hospital) (floor)?: state, county, town or city, hospital/clinic and floor Score Score: 10 Activity of Daily Living Bathing - sponge bath, tub bath or shower: receives no assistance (gets in/out by self, if usual bathing means Dressing - getting clothes from closets & drawers, including inner/outer garments & fasteners.: gets clothes & gets completely dressed without help Toileting - going to the 'toilet room' for urine/bowel elimination & cleaning self/arranging clothes: goes to toilet room, cleans self, arranges clothes without help Transfer: moves in & out of bed and chair without help (may use support object) Continence: controls urination/bowel movements completely by self Feeding: feeds self without help Total Score: 0 Information obtained from: patient Using telephone: independent Traveling: independent Shopping: independent Preparing meals: independent Housework: independent Taking medicine: independent Managing money: independent PHQ-9 Over the last 2 weeks, how often have you been bothered by any of the following problems? 1. Little interest or pleasure in doing things: not at all 2. Feeling down, depressed, or hopeless: not at all 3. Trouble falling or staying asleep, or sleeping too much: not at all 4. Feeling tired or having little energy: not at all 5. Poor appetite or overeating: not at all 6. Feeling bad about yourself - or that you are a failure or have let yourself or your family down: not at all 7. Trouble concentrating on things, such as reading the newspaper or watching te levision: not at all 8. Moving or speaking so slowly that other people could have noticed. Or the opposite - being so fidgety or restless that you have been moving around a lot more than usual: not at all 9. Thoughts that you would be better off or of hurting yourself in some way: not at all Total score: 0 Depression Screening Interpretation: Negative Depression Screening Done: Yes 20670 - PHQ-9 Billing: Yes Source: Developed by Drs. Elan Scott, Maura Grey, Oscar Montoya and colleagues, with an educational verna from [employer]. Physical Exam Vital Signs: Last Vital Signs Temp 97.5 F 10/16/24 11:36 Pulse 68 10/16/24 11:36 Resp 16 10/16/24 11:36 BP 150/70 H 10/16/24 11:36 Pulse Ox 97 10/16/24 11:36 Oxygen Delivery Method Room Air 10/16/24 11:36 BMI result Body Mass Index 20.3 Assessment & Plan Assessment & Plan (1) Medicare annual wellness visit, subsequent: Code(s): Z00.00 - Encounter for general adult medical examination without abnormal findings (2) Hypertension, essential: Code(s): I10 - Essential (primary) hypertension (3) Other specified hypothyroidism: Code(s): E03.8 - Other specified hypothyroidism Plan History - The patient is an 83-year-old female presenting for a Medicare wellness visit. And to have a follow-up on hypertension and hypothyroidism - The patient denies any history of falls in the past year and reports good memory function, including the ability to recall dates and current events. - She does not drive but is able to perform daily activities such as cooking, cleaning, and grocery shopping independently. - The patient has not undergone mammograms or colonoscopies recently and expresses disinterest in at-home colon cancer screening tests like Cologuard. - She reports good hearing and denies urinary incontinence, nausea, vomiting, chest pain, or dyspnea. - The patient is on medications including amlodipine 5 mg, atenolol 25 mg, and levothyroxine 25 mg, but did not take her blood pressure medication on the day of the visit, resulting in elevated blood pressure readings. Problem List - Essential Hypertension - Preventative care: Medicare wellness visit - Preventative care: Colon cancer screening with stool test (Cologuard) Patient Instructions - Continue taking prescribed medications, including blood pressure medication, with a small amount of water even on the day of blood tests. - Schedule a follow-up appointment in four months to reassess blood pressure and review lab results. - Bring completed healthcare proxy form to the next visit. And MOLST form Medications: Refilled amlodipine 5 mg PO DAILY 90 tabs 0RF atenolol 25 mg PO DAILY 90 tabs 0RF levothyroxine 25 mcg PO DAILY 90 tabs 0RF Quality Reporting (2019) Depression/Bipolar (159/160/161/177) PHQ-9: Total score: 0 Coding Level of Care Code Medicare Subsequent (G0439) Est Pt Level 3 (93534) Diagnoses Medicare annual wellness visit, subsequent Z00.00 Hypertension, essential I10 Other specified hypothyroidism E03.8 CPT Codes Advance Care Planning - Time spent: 1-15 minutes, not on file ([id number]) Additional Codes PHQ-9 - 47830 - PHQ-9 Billing: Yes ([id number]) Advance Care Planning Advance Care Planning discussion: Exists, not on file Forms completed: Health Care Proxy Time spent: 1-15 minutes, not on file
== END 2024-10-16 11:56 | disposition home or self-care (01) ==
LOC: HO.HMCC 11:32
PROVIDERS: PCP Internal Medicine; Visit Provider Internal Medicine
DX: Z00.00 Encounter for general adult medical examination without abnormal findings (principal); I10 Essential (primary) hypertension; E03.8 Other specified hypothyroidism

== ENCOUNTER 2025-02-16 11:29 | Outpatient (AMB) | payer MEDICARE, SELFPAY ==
[2025-02-16 11:39] VITALS: BP 142/76; PULSE 67; O2SAT 97; BMI 20.7
--- NOTE | 2025-02-16 11:39 | A.OFFPC_ITS ---
Vital Signs 02/16/25 11:39 Height 4 ft 10 in Weight 99 lb BMI 20.7 BP 142/76 H Blood Pressure Location Lt brachial Position Sitting Pulse 67 Pulse Source Pulse Oximeter Pulse Oximetry (%) 97 Intake Visit Reasons: 4 month follow up Director Of Audiology Required: No Allergies No Known Allergies Allergy (Verified 02/16/25 11:39) Medication List - Last Reconciled 02/16/25 by Paola Murillo MD amlodipine 5 mg PO DAILY atenolol 25 mg PO DAILY levothyroxine 25 mcg PO DAILY Tobacco use date assessed: 02/16/25 Fall risk assessment: No Falls in past year Last assessed Fall Risk: 02/16/25 Dental Screening Dental Screen Date: 02/16/25 Did you have a dental visit in the last 12 months?: Yes Did you have a dental problem in the last 6 months where you did not have access to dental care?: No Was dental information given to patient?: Patient has dentist HPI 4 month follow up HPI Details History of Present Illness The patient is an 84-year-old female presenting with essential hypertension. Essential Hypertension: - Blood pressure at home reports a patte rn primarily in the 130s - Patient is on current antihypertensive medication regimen. - No significant changes or associated s ymptoms reported since the last visit. Medical History: - Hypertension - Hypothyroidism Medications: - Amlodipine 5 mg for hypertension - Atenolol 25 mg for hypertension - Thyroid medication (dosage not specifi ed) for hypothyroidism Social History: - Engages in daily walking as part of he r exercise routine. Problem List - Essential Hypertension - Hypothyroidism Plan - Continue current antihypertensive aurelio men with amlodipine 5 mg and atenolol 25 mg. - Schedule routine blood tests in [facility] er to monitor renal function, liver enzymes, and thyroid levels due to ongoing medication management. - Reinforce the importance of maintainin g regular check-ups every four months to evaluate hypertension control and adjust treatment as needed. - Ensure thyroid medication efficacy is maintained with regular monitoring of thyroid function every six months. f/u 4 M Review of Systems - General: No fever no chills - Neurological: No headaches no dizziness - Ear nose throat: No sore throat no hearing difficulty no ear pain - Cardiovascular: No syncope, no chest pain, no palpitations - Gastrointestinal: No nausea vomiting or diarrhea - Endocrine: No polyuria polydipsia no heat intolerance - Genitourinary: No dysuria , no blood in urine Physical Exam - General: No acute distress - HEENT: No acute findings - Neck: Supple - Respiratory system: Able to talk in f ull sentences, no audible wheeze - Cardiovascular: S1-S2 regular in rate and rhythm - Gastrointestinal: No pain - Extremities: No new findings - 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 1. Little interest or pleasure in doing things: not at all 2. Feeling down, depressed, or hopeless: not at all 3. Trouble falling or staying asleep, or sleeping too much: not at all 4. Feeling tired or having little energy: not at all 5. Poor appetite or overeating: not at all 6. Feeling bad about yourself - or that you are a failure or have let yourself or your family down: not at all 7. Trouble concentrating on things, such as reading the newspaper or watching television: not at all 8. Moving or speaking so slowly that other people could have noticed. Or the opposite - being so fidgety or restless that you have been moving around a lot more than usual: not at all 9. Thoughts that you would be better off or of hurting yourself in some wa y: not at all Total score: 0 Depression Screening Interpretation: Negative Depression Screening Done: Yes 67181 - PHQ-9 Billing: Yes Source: Developed by Drs. Elan Scott, Maura Grey, Oscar Montoya and colleagues, with an educational verna from [employer]. Thrive Questionnaire Date Thrive assessed: 02/16/25 I am a: Patient What is your living situation today?: I have a steady place to live Within the past 12 months, did the food you bought not last and you didn't have the money to get more?: Never true Within the past 12 months, did you worry whether your food would run out before you got money to buy more?: Never true Do you have trouble paying for medicines?: No Do you have trouble getting transportation to medical appointments?: No Do you have trouble paying your heating and electricity bill?: No Do you have trouble taking care of your child, family member or friend?: No Do you have trouble with day-to-day activities such as bathing, preparing meals, shopping, managing finances, etc.?: No Are you currently unemployed and looking for a job?: No Are you interested in more education?: No Please select the resources that you would like help with: None Currently or been in a relationship where the following occur: No concerns reported THRIVE Score: 0 AUDIT C Alcohol Use Questionnaire (AUDIT-C) 1. How often do you have a drink containing alcohol?: Never 3. How often do you have six or more drinks on one occasion?: Never Total Score: 0 Score Reviewed/Action Taken: Yes SINGH-7 AMB Questionnaire SINGH-7 Date SINGH - 7 assessed: 02/16/25 Feeling nervous, anxious, or on edge: 0 = Not at all Not being able to stop or control worryin = Not at all Worrying too much about different things: 0 = Not at all Trouble relaxin = Not at all Being so restless that it is hard to sit still: 0 = Not at all Becoming easily annoyed or irritable: 0 = Not at all Feeling afraid as if something awful might happen: 0 = Not at all Total SINGH-7 score (0-4 normal; 5-9 mild; 10-14 moderate; 15-21 severe): 0 Source: Developed by Drs. Elan Scott, Maura Grey, Oscar Montoya and colleagues, with an educational verna from [employer]. SINGH-7 Assessment Billing SINGH-7 Assessment Tool: SINGH-7 Assessment 99068 Physical exam (Primary Care) Vital Signs: Last Vital Signs Pulse 67 02/16/25 11:39 BP 142/76 H 02/16/25 11:39 Pulse Ox 97 02/16/25 11:39 BMI result Body Mass Index 20.7 Tobacco/Smoking Status: Tobacco use Status Tobacco use date assessed 02/16/25 02/16/25 11:42 Patient Tobacco Use Status Never used Tobacco 02/16/25 11:42 e-Cigarette/Vaping Use Never Used 02/16/25 11:42 PHQ-9: PHQ-9 Score PHQ-9: Total score 0 02/16/25 11:50 Depression Screening Interpretation: Negative Thrive Assessment: Date of Thrive Assessment Date Thrive assessed 02/16/25 02/16/25 11:42 Currently or been in a relationship where the following occur: No concerns reported Coding Level of Care Code Est Pt Level 3 (58793) Diagnoses Hypertension, essential I10 Other specified hypothyroidism E03.8 Additional Codes SINGH-7 Assessment Billing - SINGH-7 Assessment Tool: SINGH-7 Assessment 59129 ([id number]) PHQ-9 - 60647 - PHQ-9 Billing: Yes ([id number]) Assessment & Plan Assessment & Plan (1) Hypertension, essential: Code(s): I10 - Essential (primary) hypertension Category: Medical (2) Other specified hypothyroidism: Code(s): E03.8 - Other specified hypothyroidism Category: Medical Plan History of Present Illness The patient is an 84-year-old female presenting with essential hypertension. Essential Hypertension: - Blood pressure at home reports a pattern primarily in the 130s - Patient is on current antihypertensive medication regimen. - No significant changes or associated symptoms reported since the last visit. Medical History: - Hypertension - Hypothyroidism Medications: - Amlodipine 5 mg for hypertension - Atenolol 25 mg for hypertension - Thyroid medication (dosage not specified) for hypothyroidism Social History: - Engages in daily walking as part of her exercise routine. Problem List - Essential Hypertension - Hypothyroidism Plan - Continue current antihypertensive regimen with amlodipine 5 mg and atenolol 25 mg. - Schedule routine blood tests in March to monitor renal function, liver enzymes, and thyroid levels due to ongoing medication management. - Reinforce the importance of maintaining regular check-ups every four months to evaluate hypertension control and adjust treatment as needed. - Ensure thyroid medication efficacy is maintained with regular monitoring of thyroid function every six months. f/u 4 M Orders: Orders TSH reflex Free T4 2 Months E03.8 - Other specified hypothyroidism, I10 - Essential (primary) hypertension Comprehensive Met. Panel 2 Months E03.8 - Other specified hypothyroidism, I10 - Essential (primary) hypertension Medications: Refilled amlodipine 5 mg PO DAILY 90 tabs 0RF atenolol 25 mg PO DAILY 90 tabs 0RF levothyroxine 25 mcg PO DAILY 90 tabs 0RF
== END 2025-02-16 11:51 | disposition home or self-care (01) ==
LOC: HO.HMCC 11:30
PROVIDERS: PCP Internal Medicine; Visit Provider Internal Medicine
DX: I10 Essential (primary) hypertension (principal); E03.8 Other specified hypothyroidism

== ENCOUNTER → 2025-02-16 11:29 | Outpatient (BNVA) | payer MEDICARE, SELFPAY | PROVIDERS: PCP Internal Medicine; Visit Provider Internal Medicine | DX: I10 Essential (primary) hypertension (principal); E03.8 Other specified hypothyroidism | CPT/HCPCS: 96127; 99212 ==